=== PATIENT | female | born 1935 | race Caucasian/White ===

== ENCOUNTER 2016-09-11 15:11 | Emergency (ER) | payer OTHER ==
[~2016-09-11] VITALS: Ht 160 cm; Wt 77.0 kg
[~2016-09-11 15:11] MED LIST: ALEN1TAB48 PO; ALPR0.5T3 PO; DILT1TAB4 PO; ESOM1CAP16 PO; ESTR42.5V VAGINAL; FLUT1INH INH; LOSA100T PO; PAXI40TA PO; VENTAER INH
--- NOTE | 2016-09-11 16:25 | PD ---
HPI Chief Complaint: Fall Time Seen by Provider: 16:25 Travel History International Travel<30 days: No Contact w/Intl Traveler<30days: No Traveled to known affect area: No History of Present Illness HPI 80 year-old female history of "irregular heartbeat,, hypertension, CAD, osteoporosis, presents to emergency department for evaluation following a trip and fall. Patient states she was stepping up the steps at [employer] when she miss stepped and fell. Landing mostly on her buttocks but states she fell back striking her head on the ground. She did not lose consciousness. Patient was assisted up by [address]. She denies a nausea vomiting. No focal deficits or weakness. No significant pain but describes tenderness right where she struck her head on the concrete. She denies any chest tightness. No difficulty breathing. No other symptoms to report at this time. PFSH Past Medical History Arthritis: Yes Asthma: No Autoimmune Disease: No Anxiety: Yes Depression: Yes Heart Rhythm Problems: Yes (IRREGULAR HEART BEAT) Cancer: No Cardiac Catheterization: No Cardiovascular Problems: Yes High Cholesterol: Yes Chest Pain: No Congestive Heart Failure: No COPD: No Cerebrovascular Accident: No Diabetes: No Diminished Hearing: No Endocrine: No Gastrointestinal Disorders: Yes GERD: Yes Genitourinary: Yes Hiatal Hernia: Yes Heparin Induced Thrombocytopen: No Hypertension: Yes Immune Disorder: No Implanted Vascular Access Dvce: Yes (PAIN PUMP) Musculoskeletal: Yes Neurologic: Yes (CHRONIC BACK PAIN) Psychiatric: Yes Reproductive: No Respiratory: No Immunizations Current: Yes Migraines: No Seizures: No Sleep Apnea: No Thyroid Disease: No Ulcer: No Menopausal: Yes Tubal Ligation: Yes Past Surgical History Body Medical Devices: PAIN PUMP MORPHINE Coronary Artery Bypass Graft: No Gynecologic Surgery: Yes (HYSTERECTOMY /tubal ligation) Hysterectomy: Yes Neurologic Surgery: Yes (lumbar fusion 2000) Pacemaker: No Other Surgery: Yes (EYE LIDS) Social History Alcohol Use: No Tobacco Use: No (20 YEARS AGO) Substance Use: No Allergies-Medications (Allergen,Severity, Reaction): Coded Allergies: Adhesives (Verified Allergy, Severe, 09/11/16) Bactrim (Verified Allergy, Severe, RED RASH, 09/11/16) Sulfa (Verified Allergy, Severe, RED RASH, 09/11/16) Reported Meds & Prescriptions Reported Meds & Active Scripts Active Alprazolam 0.5 Mg Tab 0.25 Mg PO HS PRN Reported Diltiazem ER 24 HR 240 Mg Jamie 240 Mg PO DAILY Paxil (Paroxetine HCl) 40 Mg Tab 40 Mg PO DAILY Losartan (Losartan Potassium) 100 Mg Tab 100 Mg PO DAILY Esomeprazole DR 40 Mg Capdr 40 Mg PO DAILY Alendronate (Alendronate Sodium) 70 Mg Tab 70 Mg PO WEEKLY Ventolin Hfa 18 GM Inh (Albuterol Sulfate) 90 Mcg/Act Aer 2 Puff INH Q4H PRN Breo Ellipta Inh (Fluticasone/Vilanterol) 100-25 Mcg/Act Inh 1 Puff INH DAILY Use daily at the same time. Estrace Vaginal (Estradiol) 0.01% Cream 1 Appl VAGINAL DIRECTED Review of Systems Except as stated in HPI: all other systems reviewed are Neg Physical Exam Narrative GENERAL: Well-nourished female patient, in no acute distress SKIN: Warm and dry. HEAD: Palpable scalpel edema on the posterior scalp. This is tender to touch. There is no crepitus. No active bleeding. Normocephalic. EYES: Pupils equal and round. No scleral icterus. No injection or drainage. ENT: No nasal bleeding or discharge. Mucous membranes pink and moist. NECK: Trachea midline. No JVD. CARDIOVASCULAR: Regular rate and rhythm. No murmur appreciated. RESPIRATORY: No accessory muscle use. Clear to auscultation. Breath sounds equal bilaterally. GASTROINTESTINAL: Abdomen soft, non-tender, nondistended. Hepatic and splenic margins not palpable. MUSCULOSKELETAL: No obvious deformities. No clubbing. No cyanosis. No edema. NEUROLOGICAL: Awake and alert. No obvious cranial nerve deficits. Motor grossly within normal limits. Normal speech. PSYCHIATRIC: Appropriate mood and affect; insight and judgment normal. Data Data Last Documented VS Vital Signs Date Time Temp Pulse Resp B/P Pulse Ox O2 Delivery O2 Flow Rate FiO2 09/11/16 17:10 98.2 85 15 173/[address] Brain W/O Iv Contrast(Rout) (09/11/16 ) Ct Cerv Spine W/O Contrast (09/11/16 ) Apply Cervical Collar (09/11/16 16:24) MDM Medical Decision Making Medical Screen Exam Complete: Yes Emergency Medical Condition: Yes Medical Record Reviewed: Yes Differential Diagnosis Scalpel hematoma versus skull fracture versus intracranial hemorrhage Narrative Course 80 year-old female presents to emergency department for evaluation following a trip and fall. Patient did strike her head on the concrete and has a palpable area of edema on the posterior scalp. CT imaging of the brain and cervical spine are complete with no acute abnormality identified. Results are discussed with the patient. She is eager to be discharged to go home. I have gone over head injury precautions and instructed her to return immediately with any acute worsening of symptoms. She agrees that the splenic care. Diagnosis Primary Impression: Head injury due to trauma Qualified Code: S09.90XA - Head injury due to trauma, initial encounter Referrals: Primary Care Physician Patient Instructions: General Instructions, Head Injury (ED) Additional Instructions: Ice to the affected area Follow-up their primary care provider return Tylenol or ibuprofen as directed on the package as needed for pain Return immediately with any acute worsening of symptoms Med/Other Pt SpecificInfo: No Change to Meds Disposition: 01 DISCHARGE HOME Condition: Stable Maria Dolores Martins Sep 11, 2016 16:25
--- NOTE | 2016-09-11 16:52 | RADRPT ---
EXAM DATE/TIME: 09/11/2016 16:43 [facility] COMPARISON: CT BRAIN W/O CONTRAST, July 23, 2016, 12:21. INDICATIONS : Fall today with trauma to left side of head. RADIATION DOSE: 49.54 CTDIvol (mGy) MEDICAL HISTORY : Hypertension. SURGICAL HISTORY : Hysterectomy. ENCOUNTER: Initial ACUITY: 1 day PAIN SCALE: 7/10 LOCATION: Left head TECHNIQUE: Multiple contiguous axial images were obtained of the head. Using automated exposure control and adj ustment of the mA and/or kV according to patient size, radiation dose was kept as low as reasonably a chievable to obtain optimal diagnostic quality images. FINDINGS: CEREBRUM: The ventricles are normal for age. No evidence of midline shift, mass lesion, hemorrhage or acute in farction. No extra-axial fluid collections are seen. POSTERIOR FOSSA: The cerebellum and brainstem are intact. The 4th ventricle is midline. The cerebellopontine angle i s unremarkable. EXTRACRANIAL: The visualized portion of the orbits is intact. SKULL: The calvaria is intact. No evidence of skull fracture. CONCLUSION: Normal examination for a patient of this age. No significant change has occurred. Gabo Pfeiffer MD on September 11, 2016 at 16:50 Board Certified Radiologist. This report was verified electronically.
--- NOTE | 2016-09-11 17:03 | RADRPT ---
EXAM DATE/TIME: 09/11/2016 16:43 [facility] COMPARISON: CT CERVICAL SPINE W/O CONTRAST, July 23, 2016, 12:21. INDICATIONS : Fall today with trauma to left side of head RADIATION DOSE: 41.02 CTDIvol (mGy) MEDICAL HISTORY : Hypertension. SURGICAL HISTORY : Hysterectomy. ENCOUNTER: Initial ACUITY: 1 day PAIN SCALE: 7/10 LOCATION: Bilateral neck TECHNIQUE: Volumetric scanning of the cervical spine was performed. Multiplanar reconstructions in the sagittal, coronal and oblique axial planes were performed. Using automated exposure control and adjustment o f the mA and/or kV according to patient size, radiation dose was kept as low as reasonably achievable to obtain optimal diagnostic quality images. FINDINGS: Multilevel degenerative changes degenerative disc disease and facet arthritic changes are appreciated as well as uncovertebral hypertrophy. Alignment is normal with no evidence of fracture, compression, subluxation, or destructive change and the odontoid has normal relationship the arch of C1. CONCLUSION: Stable CT scan of the cervical spine with degenerative change. No acute bony injury. Gabo Pfeiffer MD on September 11, 2016 at 16:58 Board Certified Radiologist. This report was verified electronically.
[2016-09-11 17:10] VITALS: BP 173/80; PULSE 85; RESP 15; TEMP 98.2; O2SAT 97
== END 2016-09-11 20:29 | disposition home or self-care (01) ==
LOC: NETRI 15:11
DX: S09.90XA Unspecified injury of head, initial encounter (principal); W10.9XXA Fall (on) (from) unspecified stairs and steps, initial encounter; Y92.511 Restaurant or cafe as the place of occurrence of the external cause
CPT/HCPCS: 70450; 72125

== ENCOUNTER 2016-09-23 04:32 | Emergency (ER) | payer OTHER ==
[~2016-09-23] VITALS: Ht 160 cm; Wt 80.0 kg
[2016-09-23 04:36] VITALS: BP 183/86; PULSE 88; RESP 16; TEMP 97.6; O2SAT 98
--- NOTE | 2016-09-23 05:11 | PD ---
HPI Chief Complaint: GI Complaint Time Seen by Provider: 04:48 Travel History International Travel<30 days: No Contact w/Intl Traveler<30days: No Traveled to known affect area: No History of Present Illness HPI 81-year-old woman presents emergency department complaining that she had some shakes at home. She reports that she had a couple bouts of diarrhea 00 week or so ago. Since that time she's not felt well. She felt run down and went to an urgent care today who gave her prescription for azithromycin for her feeling rundown and aches and sore throat. She went home and then tonight had some shaking and she felt she had a fever. She thus came to the emergency department. PFSH Past Medical History Arthritis: Yes Asthma: No Autoimmune Disease: No Anxiety: Yes Depression: Yes Heart Rhythm Problems: Yes (IRREGULAR HEART BEAT) Cancer: No Cardiac Catheterization: No Cardiovascular Problems: Yes (HTN) High Cholesterol: Yes Chest Pain: No Congestive Heart Failure: No COPD: No Cerebrovascular Accident: No Diabetes: No Diminished Hearing: No Endocrine: No Gastrointestinal Disorders: Yes GERD: Yes Genitourinary: Yes Hiatal Hernia: Yes Heparin Induced Thrombocytopen: No Hypertension: Yes Immune Disorder: No Implanted Vascular Access Dvce: Yes (PAIN PUMP) Musculoskeletal: Yes Neurologic: Yes (CHRONIC BACK PAIN) Psychiatric: Yes Reproductive: No Respiratory: No Immunizations Current: Yes Migraines: No Seizures: No Sleep Apnea: No Thyroid Disease: No Ulcer: No Menopausal: Yes Tubal Ligation: Yes Past Surgical History Body Medical Devices: PAIN PUMP MORPHINE Coronary Artery Bypass Graft: No Gynecologic Surgery: Yes (HYSTERECTOMY /tubal ligation) Hysterectomy: Yes Neurologic Surgery: Yes (lumbar fusion 2000) Pacemaker: No Other Surgery: Yes (EYE LIDS) Social History Alcohol Use: No Tobacco Use: No (20 YEARS AGO) Substance Use: No Allergies-Medications (Allergen,Severity, Reaction): Coded Allergies: Adhesives (Verified Allergy, Severe, 09/23/16) Bactrim (Verified Allergy, Severe, RED RASH, 09/23/16) Sulfa (Verified Allergy, Severe, RED RASH, 09/23/16) Reported Meds & Prescriptions Reported Meds & Active Scripts Active Alprazolam 0.5 Mg Tab 0.25 Mg PO HS PRN Reported Diltiazem ER 24 HR 240 Mg Jamie 240 Mg PO DAILY Paxil (Paroxetine HCl) 40 Mg Tab 40 Mg PO DAILY Losartan (Losartan Potassium) 100 Mg Tab 100 Mg PO DAILY Esomeprazole DR 40 Mg Capdr 40 Mg PO DAILY Alendronate (Alendronate Sodium) 70 Mg Tab 70 Mg PO WEEKLY Ventolin Hfa 18 GM Inh (Albuterol Sulfate) 90 Mcg/Act Aer 2 Puff INH Q4H PRN Breo Ellipta Inh (Fluticasone/Vilanterol) 100-25 Mcg/Act Inh 1 Puff INH DAILY Use daily at the same time. Estrace Vaginal (Estradiol) 0.01% Cream 1 Appl VAGINAL DIRECTED Review of Systems Except as stated in HPI: all other systems reviewed are Neg Physical Exam Narrative GENERAL: Well-appearing 81-year-old woman, anxious no acute distress. SKIN: Warm and dry. HEAD: Atraumatic. Normocephalic. EYES: Pupils equal and round. No scleral icterus. No injection or drainage. ENT: No nasal bleeding or discharge. Mucous membranes pink and moist. NECK: Trachea midline. No JVD. CARDIOVASCULAR: Regular rate and rhythm. No murmur appreciated. RESPIRATORY: No accessory muscle use. Clear to auscultation. Breath sounds equal bilaterally. GASTROINTESTINAL: Abdomen soft, non-tender, nondistended. Hepatic and splenic margins not palpable. MUSCULOSKELETAL: No obvious deformities. No clubbing. No cyanosis. No edema. NEUROLOGICAL: Awake and alert. No obvious cranial nerve deficits. Motor grossly within normal limits. Normal speech. PSYCHIATRIC: Appropriate mood and affect; insight and judgment normal. Data Data Last Documented VS Vital Signs Date Time Temp Pulse Resp B/P Pulse Ox O2 Delivery O2 Flow Rate FiO2 09/23/16 04:36 97.6 88 16 183/86 98 Orders Ketorolac Inj (Toradol Inj) (09/23/16 05:15) [facility] Medical Decision Making Medical Screen Exam Complete: Yes Emergency Medical Condition: Yes Differential Diagnosis Anxiety, URI, infection, other Narrative Course Medical decision-making 81 year-old woman multiple complaints that seem to rundown with the fact she just doesn't feel well since she had diarrhea week or so ago. She looks fine. Don't see any evidence of significant dehydration or electrolyte abnormalities. She states she had some shakes and felt chilly earlier. She is on azithromycin for feeling poorly with some mild URI symptoms. She is asking for a shot so she noticed sleep. I think she is anxious. Recommend outpatient follow-up if symptoms persist. Diagnosis Primary Impression: Shasharmin Additional Instructions: Follow-up with your primary doctor. Return to the emergency department for any new or worsening symptoms. Disposition: 01 DISCHARGE HOME Condition: Stable Bowen Reid MD Sep 23, 2016 05:11
[2016-09-23] MEDS ORDERED: KETOROLAC TROMETHAMINE 60 MG/2 ML (IM) VIAL IM ONE (05:15)
[2016-09-24] MEDS ORDERED: PRAV20TA2 PO (23:53)
[2016-09-24] MEDS ORDERED: ZITH500T PO (23:53)
[2016-09-24] MEDS ORDERED: FURO40TA PO (23:53)
[2016-09-24] MEDS ORDERED: PARO40TA2 PO (23:53)
== END 2016-09-23 05:25 | disposition home or self-care (01) ==
LOC: NEPE 04:32
DX: R25.1 Tremor, unspecified (principal); I10 Essential (primary) hypertension; E78.00 Pure hypercholesterolemia, unspecified; K21.9 Gastro-esophageal reflux disease without esophagitis; G89.29 Other chronic pain; R19.7 Diarrhea, unspecified
CPT/HCPCS: 96372; 99283; J1885

== ENCOUNTER 2016-09-24 23:15 | Emergency (ER) | payer OTHER ==
[~2016-09-24] VITALS: Ht 154.9 cm; Wt 77.0 kg
[~2016-09-24 23:15] MED LIST changes: -ALPR0.5T3 PO; -ESTR42.5V VAGINAL; -PAXI40TA PO
[2016-09-24 23:16] VITALS: BP 138/88; PULSE 78; RESP 16; TEMP 99; O2SAT 98
[2016-09-24] MEDS ORDERED: PARO40TA2 PO (23:53)
[2016-09-24] MEDS ORDERED: FURO40TA PO (23:53)
[2016-09-24] MEDS ORDERED: PRAV20TA2 PO (23:53)
[2016-09-24] MEDS ORDERED: ZITH500T PO (23:53)
[2016-09-25 00:28] LABS: AUTOMATED NEUTROPHIL # 3.1 TH/MM3 (1.8-7.7); BASOPHIL # 0.1 TH/MM3 (0-0.2); BASOPHIL % 0.9 % (0.0-2.0); EOSINOPHIL % 0.7 % (0.0-4.0); HEMATOCRIT 38.7 % (35.0-46.0); LYMPH % 43.2 % (9.0-44.0); MEAN CELL VOLUME 85.1 FL (80.0-100.0); MEAN CORPUSCULAR HEMOGLOBIN 28.3 PG (27.0-34.0); MEAN CORPUSCULAR HGB CONC 33.3 % (32.0-36.0); MONO % 10.2 % (0.0-8.0); PLATELET COUNT 277 TH/MM3 (150-450); RED BLOOD COUNT 4.54 MIL/MM3 (4.00-5.30); RED CELL DISTRIBUTION WIDTH 15.2 % (11.6-17.2); WHITE BLOOD COUNT 6.9 TH/MM3 (4.0-11.0)
[2016-09-25 00:29] LABS: HEMO FLAGS AUTO DIFF
[2016-09-25 00:37] LABS: BACTERIA, URINE RARE /hpf; BLOOD, URINE NEG (NEG); GLUCOSE,URINE NEG (NEG); KETONE, URINE NEG (NEG); MUCUS URINE FEW /lpf (OCC); NITRITE,URINE NEG (NEG); PH, URINE 5.5 (5.0-8.5); SQUAMOUS EPITHELIAL CELL URINE 21 /hpf (0-5); TRANSITIONAL EPI CELLS, URINE 7 /hpf; URINE COLOR YELLOW (YELLW/STRAW)
[2016-09-25 00:39] LABS: COMMENT (UR) CULTURE INDICATED; CULTURE IF INDICATED CULTURE INDICATED
[2016-09-25 00:44] LABS: ANION GAP 10 MEQ/L (5-15); AST (GOT) 24 U/L (15-37); BICARBONATE 23.4 MEQ/L (21.0-32.0); BLOOD UREA NITROGEN 16 MG/DL (7-18); CHLORIDE 103 MEQ/L (98-107); GLOMERULAR FILTRATION RATE 66 ML/MIN (>89); POTASSIUM 3.7 MEQ/L (3.5-5.1); SODIUM (NA) 136 MEQ/L (136-145)
[2016-09-25 00:47] LABS: ALKALINE PHOSPHATASE 83 U/L (45-117); ALT (GPT) 24 U/L (10-53); TOTAL BILIRUBIN ADULT 0.3 MG/DL (0.2-1.0)
[2016-09-25 00:58] LABS: PLATELET ESTIMATE SMEAR NORMAL (NORMAL); PLATELET MORPHOLOGY NORMAL (NORMAL); SCAN/DIFF AUTO DIFF CONFIRMED
[2016-09-25] MEDS ORDERED: cefTRIAXone INJ 1,000 MG in SODIUM CHLORIDE 0.9% INJ 100 ML IV ONE (01:00)
--- NOTE | 2016-09-25 01:33 | PD ---
HPI Chief Complaint: Back/ Neck Pain or Injury Time Seen by Provider: 01:30 Travel History International Travel<30 days: No Contact w/Intl Traveler<30days: No Traveled to known affect area: No History of Present Illness HPI 81-year-old white female presents to emergency department with a 2-3 day history of feeling shaky. She states that she is now documented a fever. She states that she is feeling rundown, weak. She is noting increased urinary frequency. She denies any shortness of breath or wheezing. No ear pain or sore throat. No nausea vomiting. No bowel pain or stooling issues. Symptoms are moderate. She states that she has had a fever of 101F. PFSH Past Medical History Arthritis: Yes Anxiety: Yes Depression: Yes Heart Rhythm Problems: Yes (IRREGULAR HEART BEAT) Cardiovascular Problems: Yes (HTN) High Cholesterol: Yes Diminished Hearing: No Gastrointestinal Disorders: Yes GERD: Yes Genitourinary: Yes Hiatal Hernia: Yes Heparin Induced Thrombocytopen: No Hypertension: Yes Implanted Vascular Access Dvce: Yes (PAIN PUMP) Musculoskeletal: Yes Neurologic: Yes (CHRONIC BACK PAIN) Psychiatric: Yes Immunizations Current: Yes Menopausal: Yes Tubal Ligation: Yes Past Surgical History Body Medical Devices: PAIN PUMP MORPHINE Gynecologic Surgery: Yes (HYSTERECTOMY /tubal ligation) Hysterectomy: Yes Neurologic Surgery: Yes (lumbar fusion 2000) Other Surgery: Yes (EYE LIDS) Family History Family Myocardial Infarction: Yes (FATHER) Social History Alcohol Use: No Tobacco Use: No (20 YEARS AGO) Substance Use: No Allergies-Medications (Allergen,Severity, Reaction): Coded Allergies: Adhesives (Verified Allergy, Severe, 09/24/16) Bactrim (Verified Allergy, Severe, RED RASH, 09/24/16) Sulfa (Verified Allergy, Severe, RED RASH, 09/24/16) Reported Meds & Prescriptions Reported Meds & Active Scripts Active Reported Zithromax (Azithromycin) 500 Mg Tab 500 Mg PO DAILY Pravastatin 20 Mg Tab 20 Mg PO DAILY Paroxetine (Paroxetine HCl) 40 Mg Tab 40 Mg PO DAILY Furosemide 40 Mg Tab 40 Mg PO DAILY Diltiazem ER 24 HR 240 Mg Jamie 240 Mg PO DAILY Losartan (Losartan Potassium) 100 Mg Tab 100 Mg PO DAILY Esomeprazole DR 40 Mg Capdr 40 Mg PO DAILY Alendronate (Alendronate Sodium) 70 Mg Tab 70 Mg PO WEEKLY Ventolin Hfa 18 GM Inh (Albuterol Sulfate) 90 Mcg/Act Aer 2 Puff INH Q4H PRN Breo Ellipta Inh (Fluticasone/Vilanterol) 100-25 Mcg/Act Inh 1 Puff INH DAILY Use daily at the same time. Review of Systems Except as stated in HPI: all other systems reviewed are Neg Physical Exam Narrative GENERAL: Well-developed, well-nourished in no acute distress. Nontoxic appearing. HEAD: Normocephalic, atraumatic. EYES: Pupils equal round and reactive. Extraocular motions intact. No scleral icterus. No injection or drainage. ENT: TMs clear without erythema. The external auditory canals clear. Nose: clear . Posterior pharynx is pink and moist. No tonsillar edema or exudate. Uvula midline. Airway patent. NECK: Trachea midline.Supple, nontender, moves head freely. No central bony tenderness or spasm. CARDIOVASCULAR: Regular rate and rhythm without murmurs, gallops, or rubs. RESPIRATORY: Clear to auscultation. Breath sounds equal bilaterally. No wheezes , rales, or rhonchi. GASTROINTESTINAL: Abdomen soft, non-tender, nondistended. No hepato-splenomegaly , or palpable masses. No guarding. EXTREMITIES: No clubbing, cyanosis, or edema. No joint tenderness, effusion, or edema noted. BACK: Nontender without deformity or crepitance. No flank tenderness. Data Data Last Documented VS Vital Signs Date Time Temp Pulse Resp B/P Pulse Ox O2 Delivery O2 Flow Rate FiO2 09/25/16 00:06 20 09/24/16 23:16 99.0 78 138/88 98 Room Air Orders Complete Blood Count With Diff (09/24/16 23:48) Urinalysis - C+S If Indicated (09/24/16 23:48) Lactic Acid (09/24/16 23:48) Iv Access Insert/Monitor (09/24/16 23:48) Comprehensive Metabolic Panel (09/24/16 23:48) Urine Culture (09/25/16 00:00) Ceftriaxone Inj (Rocephin Inj) (09/25/16 01:00) Labs Laboratory Tests Test 09/25/16 00:00 White Blood Count 6.9 TH/MM3 Red Blood Count 4.54 MIL/MM3 Hemoglobin 12.9 GM/DL Hematocrit 38.7 % Mean Corpuscular Volume 85.1 FL Mean Corpuscular Hemoglobin 28.3 PG Mean Corpuscular Hemoglobin 33.3 % Concent Red Cell Distribution Width 15.2 % Platelet Count 277 TH/MM3 Mean Platelet Volume 7.7 FL Neutrophils (%) (Auto) 45.0 % Lymphocytes (%) (Auto) 43.2 % Monocytes (%) (Auto) 10.2 % Eosinophils (%) (Auto) 0.7 % Basophils (%) (Auto) 0.9 % Neutrophils # (Auto) 3.1 TH/MM3 Lymphocytes # (Auto) 3.0 TH/MM3 Monocytes # (Auto) 0.7 TH/MM3 Eosinophils # (Auto) 0.0 TH/MM3 Basophils # (Auto) 0.1 TH/MM3 CBC Comment AUTO DIFF Differential Comment AUTO DIFF CONFIRMED Platelet Estimate NORMAL Platelet Morphology Comment NORMAL Urine Color YELLOW Urine Turbidity HAZY Urine pH 5.5 Urine Specific [place] 1.016 Urine Protein NEG mg/dL Urine Glucose (UA) NEG mg/dL Urine Ketones NEG mg/dL Urine Occult Blood NEG Urine Nitrite NEG Urine Bilirubin NEG Urine Urobilinogen LESS THAN 2.0 MG/DL Urine Leukocyte Esterase LARGE Urine RBC 6 /hpf Urine WBC 20 /hpf Urine Squamous Epithelial 21 /hpf Cells Urine Transitional Epithelial 7 /hpf Cells Urine Bacteria RARE /hpf Urine Mucus FEW /lpf Microscopic Urinalysis Comment CULTURE INDICATED Sodium Level 136 MEQ/L Potassium Level 3.7 MEQ/L Chloride Level 103 MEQ/L Carbon Dioxide Level 23.4 MEQ/L Anion Gap 10 MEQ/L Blood Urea Nitrogen 16 MG/DL Creatinine 0.83 MG/DL Estimat Glomerular Filtration 66 ML/MIN Rate Random Glucose 94 MG/DL Lactic Acid Level 1.0 mmol/L Calcium Level 9.0 MG/DL Total Bilirubin 0.3 MG/DL Aspartate Amino Transf 24 U/L (AST/SGOT) Alanine Aminotransferase 24 U/L (ALT/SGPT) Alkaline Phosphatase 83 U/L Total Protein 7.7 GM/DL Albumin 4.0 GM/DL MDM Medical Decision Making Medical Screen Exam Complete: Yes Emergency Medical Condition: Yes Medical Record Reviewed: Yes Interpretation(s) Laboratory Tests Test 09/25/16 00:00 White Blood Count 6.9 TH/MM3 Red Blood Count 4.54 MIL/MM3 Hemoglobin 12.9 GM/DL Hematocrit 38.7 % Mean Corpuscular Volume 85.1 FL Mean Corpuscular Hemoglobin 28.3 PG Mean Corpuscular Hemoglobin 33.3 % Concent Red Cell Distribution Width 15.2 % Platelet Count 277 TH/MM3 Mean Platelet Volume 7.7 FL Neutrophils (%) (Auto) 45.0 % Lymphocytes (%) (Auto) 43.2 % Monocytes (%) (Auto) 10.2 % Eosinophils (%) (Auto) 0.7 % Basophils (%) (Auto) 0.9 % Neutrophils # (Auto) 3.1 TH/MM3 Lymphocytes # (Auto) 3.0 TH/MM3 Monocytes # (Auto) 0.7 TH/MM3 Eosinophils # (Auto) 0.0 TH/MM3 Basophils # (Auto) 0.1 TH/MM3 CBC Comment AUTO DIFF Differential Comment AUTO DIFF CONFIRMED Platelet Estimate NORMAL Platelet Morphology Comment NORMAL Urine Color YELLOW Urine Turbidity HAZY Urine pH 5.5 Urine Specific [place] 1.016 Urine Protein NEG mg/dL Urine Glucose (UA) NEG mg/dL Urine Ketones NEG mg/dL Urine Occult Blood NEG Urine Nitrite NEG Urine Bilirubin NEG Urine Urobilinogen LESS THAN 2.0 MG/DL Urine Leukocyte Esterase LARGE Urine RBC 6 /hpf Urine WBC 20 /hpf Urine Squamous Epithelial 21 /hpf Cells Urine Transitional Epithelial 7 /hpf Cells Urine Bacteria RARE /hpf Urine Mucus FEW /lpf Microscopic Urinalysis Comment CULTURE INDICATED Sodium Level 136 MEQ/L Potassium Level 3.7 MEQ/L Chloride Level 103 MEQ/L Carbon Dioxide Level 23.4 MEQ/L Anion Gap 10 MEQ/L Blood Urea Nitrogen 16 MG/DL Creatinine 0.83 MG/DL Estimat Glomerular Filtration 66 ML/MIN Rate Random Glucose 94 MG/DL Lactic Acid Level 1.0 mmol/L Calcium Level 9.0 MG/DL Total Bilirubin 0.3 MG/DL Aspartate Amino Transf 24 U/L (AST/SGOT) Alanine Aminotransferase 24 U/L (ALT/SGPT) Alkaline Phosphatase 83 U/L Total Protein 7.7 GM/DL Albumin 4.0 GM/DL Differential Diagnosis Differential diagnosis: Sepsis, UTI, electrolyte abnormality Narrative Course IV access is obtained. Lactic acid, CBC, chemistry and UA ordered. Patient's urine is positive for UTI. She is given 1 g of Rocephin IV. Lactic acid is negative. The patient will be discharged home on Cipro. Diagnosis Primary Impression: UTI (urinary tract infection) Additional Impression: Fever and chills Patient Instructions: General Instructions Additional Instructions: Rest. Increase fluids. Cipro. Follow-up with a primary care doctor in 2-3 days. Return to the ER for any problems. Med/Other Pt SpecificInfo: Prescription(s) given Disposition: 01 DISCHARGE HOME Condition: Stable Arslan Schafer Sep 25, 2016 01:33
[2016-09-25] MEDS ORDERED: CIPR-9 PO (01:35)
== END 2016-09-25 02:13 | disposition home or self-care (01) ==
LOC: NEPB 23:15
DX: N39.0 Urinary tract infection, site not specified (principal); F41.8 Other specified anxiety disorders; M19.90 Unspecified osteoarthritis, unspecified site; I10 Essential (primary) hypertension; E78.00 Pure hypercholesterolemia, unspecified
CPT/HCPCS: 80053; 81001; 83605; 85025; 87086; 96374; 99284; J0696

== ENCOUNTER 2016-10-02 13:59 | Observation (INO) | payer OTHER ==
[~2016-10-02] VITALS: Ht 160 cm; Wt 74.0 kg
[~2016-10-02 13:59] MED LIST changes: +CIPR-9 PO; +FURO40TA PO; +PARO40TA2 PO; +PRAV20TA2 PO; +ZITH500T PO
[2016-10-02 14:00] VITALS: BP 188/79; PULSE 90; RESP 20; TEMP 97.6; O2SAT 95
[2016-10-02 16:05] VITALS: RESP 17; O2SAT 98
[2016-10-02] MEDS ORDERED: SODIUM CHLORIDE 0.9% FLUSH 5 ML FLUSH IVF PRN (16:15)
[2016-10-02] MEDS ORDERED: SODIUM CHLORID 0.9% 500 ML INJ 500 ML IV ONE (16:15)
[2016-10-02] MEDS ORDERED: DIPHTH/TETANUS/ACEL PERTUSSIS (BOOSTER) 0.5 ML VIAL/PFS IM ONE (16:15)
[2016-10-02] MEDS ORDERED: OMEP40CA2 PO (16:21)
[2016-10-02 17:08] LABS: AUTOMATED NEUTROPHIL # 5.5 TH/MM3 (1.8-7.7); BASOPHIL % 0.5 % (0.0-2.0); EOSINOPHIL # 0.1 TH/MM3 (0-0.4); EOSINOPHIL % 1.1 % (0.0-4.0); HEMATOCRIT 37.4 % (35.0-46.0); HEMO FLAGS DIFF FINAL; LYMPH % 22.5 % (9.0-44.0); MEAN CELL VOLUME 86.9 FL (80.0-100.0); MEAN CORPUSCULAR HEMOGLOBIN 28.6 PG (27.0-34.0); MEAN CORPUSCULAR HGB CONC 32.9 % (32.0-36.0); MONO % 12.5 % (0.0-8.0); NEUT % 63.4 % (16.0-70.0); PLATELET COUNT 227 TH/MM3 (150-450); RED BLOOD COUNT 4.31 MIL/MM3 (4.00-5.30); RED CELL DISTRIBUTION WIDTH 15.9 % (11.6-17.2); WHITE BLOOD COUNT 8.7 TH/MM3 (4.0-11.0)
[2016-10-02 17:26] LABS: PROTHROMBIN TIME - PATIENT 11.1 SEC (9.8-11.6)
[2016-10-02 17:34] LABS: ACETAMINOPHEN LESS THAN 2.0 MCG/ML (10.0-30.0); ALKALINE PHOSPHATASE 75 U/L (45-117); TOTAL BILIRUBIN ADULT 0.7 MG/DL (0.2-1.0)
[2016-10-02 17:46] LABS: ALT (GPT) 16 U/L (10-53); ANION GAP 10 MEQ/L (5-15); AST (GOT) 15 U/L (15-37); BICARBONATE 24.8 MEQ/L (21.0-32.0); BLOOD UREA NITROGEN 14 MG/DL (7-18); CHLORIDE 105 MEQ/L (98-107); GLOMERULAR FILTRATION RATE 70 ML/MIN (>89); INDIRECT BILIRUBIN 0.6 MG/DL (0.0-0.8); POTASSIUM 4.1 MEQ/L (3.5-5.1); SODIUM (NA) 140 MEQ/L (136-145)
--- NOTE | 2016-10-02 18:22 | PD ---
HPI Chief Complaint: Altered Mental Status Time Seen by Provider: 15:44 Travel History International Travel<30 days: No Contact w/Intl Traveler<30days: No Traveled to known affect area: No History of Present Illness HPI Patient is a 81-year-old female brought in by her son after she fell last night. Her son reports that she has been falling very frequently and he is worried she is unable to care for herself anymore. She says that she seems to lose her balance and fall down. She says she has some pain to her lower back as well as her left foot and ankle. She seems confused well speaking to me, and is unable to really provide any other history or complaints. She says she has been feeling depressed, and her son says she has had issues with depression in the past. PFSH Past Medical History Arthritis: Yes Anxiety: Yes Depression: Yes Heart Rhythm Problems: Yes (IRREGULAR HEART BEAT) Cardiovascular Problems: Yes (HTN) High Cholesterol: Yes Diminished Hearing: No Gastrointestinal Disorders: Yes GERD: Yes Genitourinary: Yes Hiatal Hernia: Yes Heparin Induced Thrombocytopen: No Hypertension: Yes Implanted Vascular Access Dvce: Yes (PAIN PUMP) Musculoskeletal: Yes Neurologic: Yes (CHRONIC BACK PAIN) Psychiatric: Yes Immunizations Current: Yes Tetanus Vaccination: < 5 Years Influenza Vaccination: Yes Menopausal: Yes Tubal Ligation: Yes Past Surgical History Body Medical Devices: PAIN PUMP MORPHINE Gynecologic Surgery: Yes (HYSTERECTOMY /tubal ligation) Hysterectomy: Yes Neurologic Surgery: Yes (lumbar fusion 2000) Other Surgery: Yes (EYE LIDS) Family History Family Myocardial Infarction: Yes (FATHER) Social History Alcohol Use: No Tobacco Use: No (20 YEARS AGO) Substance Use: No Allergies-Medications (Allergen,Severity, Reaction): Coded Allergies: Adhesives (Verified Allergy, Severe, rash, 10/02/16) Bactrim (Verified Allergy, Severe, RED RASH, 10/02/16) Sulfa (Verified Allergy, Severe, RED RASH, 10/02/16) Reported Meds & Prescriptions Reported Meds & Active Scripts Active Reported Omeprazole 40 Mg Cap 40 Mg PO DAILY Pravastatin 20 Mg Tab 20 Mg PO DAILY Paroxetine (Paroxetine HCl) 40 Mg Tab 40 Mg PO DAILY Furosemide 40 Mg Tab 40 Mg PO DAILY Diltiazem ER 24 HR 240 Mg Jamie 240 Mg PO DAILY Losartan (Losartan Potassium) 100 Mg Tab 100 Mg PO DAILY Alendronate (Alendronate Sodium) 70 Mg Tab 70 Mg PO WEEKLY Breo Ellipta Inh (Fluticasone/Vilanterol) 100-25 Mcg/Act Inh 1 Puff INH DAILY Use daily at the same time. Review of Systems ROS Limitations: Clinical Condition General / Constitutional: No: Fever, Chills Cardiovascular: No: Chest Pain or Discomfort Respiratory: No: Shortness of Breath Gastrointestinal: No: Nausea, Vomiting, Abdominal Pain Musculoskeletal: Positive: Pain Skin: No Rash, No Change in Pigmentation Physical Exam Narrative GENERAL: Awake and alert, in no acute distress. SKIN: Warm and dry. HEAD: Atraumatic. Normocephalic. EYES: Pupils equal and round. No scleral icterus. ENT: Mucous membranes pink and moist. NECK: Trachea midline. No JVD. CARDIOVASCULAR: Regular rate and rhythm. No murmur appreciated. RESPIRATORY: No accessory muscle use. Clear to auscultation. Breath sounds equal bilaterally. GASTROINTESTINAL: Abdomen soft, non-tender, nondistended. MUSCULOSKELETAL: No obvious deformities. No clubbing. No cyanosis. Left foot edema, pain with movement of the ankle. Pedal pulses intact. NEUROLOGICAL: Awake and alert. No obvious cranial nerve deficits. Motor grossly within normal limits. Normal speech. PSYCHIATRIC: Appropriate mood and affect; insight and judgment normal. Data Data Last Documented VS Vital Signs Date Time Temp Pulse Resp B/P Pulse Ox O2 Delivery O2 Flow Rate FiO2 10/02/16 16:05 17 98 Room Air 10/02/16 14:00 97.6 90 188/79 Orders Electrocardiogram (10/02/16 16:01) Ammonia (10/02/16 16:01) Basic Metabolic Panel (Bmp) (10/02/16 16:01) Complete Blood Count With Diff (10/02/16 16:01) Prothrombin Time / Inr (Pt) (10/02/16 16:01) Act Partial Throm Time (Ptt) (10/02/16 16:01) Troponin I (10/02/16 16:01) Thyroid Stimulating Hormone (10/02/16 16:01) Urinalysis - C+S If Indicated (10/02/16 16:01) Ua Includes Microscopic (10/02/16 16:01) Chest, Pa & Lat (10/02/16 16:01) Ct Brain W/O Iv Contrast(Rout) (10/02/16 16:01) Ecg Monitoring (10/02/16 16:01) Iv Access Insert/Monitor (10/02/16 16:01) Oximetry (10/02/16 16:01) Sodium Chloride 0.9% Flush (Ns Flush) (10/02/16 16:15) Drug Screen, Random Urine (10/02/16 16:01) Salicylates (Aspirin) (10/02/16 16:01) Tylenol (Acetaminophen) (10/02/16 16:01) Hepatic Functional Panel (10/02/16 16:01) Sodium Chlorid 0.9% 500 Ml Inj (Ns 500 M (10/02/16 16:15) Foot, Complete ([id number]) (10/02/16 ) Ankle, Complete ([id number]) (10/02/16 ) Wound Care (10/02/16 16:01) Dpog-Dro-Wmhame (Booster) Inj (Boostrix (10/02/16 16:15) Labs Laboratory Tests Test 10/02/16 16:30 White Blood Count 8.7 TH/MM3 Red Blood Count 4.31 MIL/MM3 Hemoglobin 12.3 GM/DL Hematocrit 37.4 % Mean Corpuscular Volume 86.9 FL Mean Corpuscular Hemoglobin 28.6 PG Mean Corpuscular Hemoglobin 32.9 % Concent Red Cell Distribution Width 15.9 % Platelet Count 227 TH/MM3 Mean Platelet Volume 7.9 FL Neutrophils (%) (Auto) 63.4 % Lymphocytes (%) (Auto) 22.5 % Monocytes (%) (Auto) 12.5 % Eosinophils (%) (Auto) 1.1 % Basophils (%) (Auto) 0.5 % Neutrophils # (Auto) 5.5 TH/MM3 Lymphocytes # (Auto) 2.0 TH/MM3 Monocytes # (Auto) 1.1 TH/MM3 Eosinophils # (Auto) 0.1 TH/MM3 Basophils # (Auto) 0.0 TH/MM3 CBC Comment DIFF FINAL Differential Comment Prothrombin Time 11.1 SEC Prothromb Time International 1.0 RATIO Ratio Activated Partial 28.0 SEC Thromboplast Time Sodium Level 140 MEQ/L Potassium Level 4.1 MEQ/L Chloride Level 105 MEQ/L Carbon Dioxide Level 24.8 MEQ/L Anion Gap 10 MEQ/L Blood Urea Nitrogen 14 MG/DL Creatinine 0.79 MG/DL Estimat Glomerular Filtration 70 ML/MIN Rate Random Glucose 93 MG/DL Calcium Level 8.9 MG/DL Total Bilirubin 0.7 MG/DL Direct Bilirubin 0.1 MG/DL Indirect Bilirubin 0.6 MG/DL Aspartate Amino Transf 15 U/L (AST/SGOT) Alanine Aminotransferase 16 U/L (ALT/SGPT) Alkaline Phosphatase 75 U/L Ammonia 24 MCMOL/L Troponin I LESS THAN 0.02 NG/ML Total Protein 7.1 GM/DL Albumin 3.9 GM/DL Thyroid Stimulating Hormone 0.698 uIU/ML 3rd Gen Salicylates Level LESS THAN 1.7 MG/DL Acetaminophen Level LESS THAN 2.0 MCG/ML MDM Medical Decision Making Medical Screen Exam Complete: Yes Emergency Medical Condition: Yes Medical Record Reviewed: Yes Differential Diagnosis UTI versus sepsis versus electrolyte abnormality versus CVA Narrative Course Patient is a 81-year-old female brought in by her son because she has had frequent falls and seems to be unable to care for herself. Of note patient has a morphine pump and often takes benzodiazepines. Exam shows some swelling of the left foot with some pain with movement. IV established, labs sent. CT of the head ordered. X-rays of the foot and ankle as well as the lumbar spine ordered. Patient signed out to Dr. Fonseca to follow-up tests and disposition appropriately. Condition: Stable Chery Morrison MD Oct 02, 2016 18:22
[2016-10-02 18:30] VITALS: BP 177/84; PULSE 77; RESP 17; TEMP 97.8; O2SAT 99
--- NOTE | 2016-10-02 18:49 | RADRPT ---
EXAM DATE/TIME: 10/02/2016 18:19 [facility] COMPARISON: CT BRAIN W/O CONTRAST, September 11, 2016, 16:43. INDICATIONS : Fall yesterday. Altered menta status. RADIATION DOSE: 38.43 CTDIvol (mGy) MEDICAL HISTORY : Hypertension. SURGICAL HISTORY : Hysterectomy. ENCOUNTER: Initial ACUITY: 1 day PAIN SCALE: 4/10 LOCATION: Bilateral head TECHNIQUE: Multiple contiguous axial images were obtained of the head. Using automated exposure control and adj ustment of the mA and/or kV according to patient size, radiation dose was kept as low as reasonably a chievable to obtain optimal diagnostic quality images. FINDINGS: CEREBRUM: The ventricles are normal for age. No evidence of midline shift, mass lesion, hemorrhage or acute in farction. No extra-axial fluid collections are seen. POSTERIOR FOSSA: The cerebellum and brainstem are intact. The 4th ventricle is midline. The cerebellopontine angle i s unremarkable. EXTRACRANIAL: The visualized portion of the orbits is intact. SKULL: The calvaria is intact. No evidence of skull fracture. CONCLUSION: Negative noncontrast head CT. Frank Savage MD on October 02, 2016 at 18:47 Board Certified Radiologist. This report was verified electronically.
--- NOTE | 2016-10-02 18:57 | RADRPT ---
EXAM DATE/TIME: 10/02/2016 18:23 [facility] COMPARISON: CHEST SINGLE AP, July 23, 2016, 11:52. INDICATIONS : Syncope, short of breath. MEDICAL HISTORY : None. SURGICAL HISTORY : None. ENCOUNTER: Initial ACUITY: 3 days PAIN SCORE: 0/10 LOCATION: Bilateral chest FINDINGS: PA and lateral views of the chest demonstrate the lungs to be symmetrically aerated without evidence of mass, infiltrate or effusion. The cardiomediastinal contours are unremarkable. Osseous structure s are intact. Calcified right peritracheal lymph nodes are again noted. Lungs are hyperexpanded. CONCLUSION: No evidence of acute cardiopulmonary disease. Hyperexpanded lungs and pleural granulomatous disease a gain noted. Frank Savage MD on October 02, 2016 at 18:55 Board Certified Radiologist. This report was verified electronically.
--- NOTE | 2016-10-02 19:00 | RADRPT ---
EXAM DATE/TIME: 10/02/2016 18:24 [facility] COMPARISON: No previous studies available for comparison. INDICATIONS : Left ankle pain after fall. MEDICAL HISTORY : None. SURGICAL HISTORY : None. ENCOUNTER: Initial ACUITY: 3 days PAIN SCORE: 7/10 LOCATION: Left ankle. FINDINGS: Bones are osteopenic. There is cortical irregularity of the dorsal, proximal corner of the navicular which may be a minimally displaced avulsion fracture of the dorsal talonavicular ligament. There is s ome soft tissue swelling in this region. Otherwise, I don't see an acute fracture. There are old avulsion fracture fragments of the tips of t he medial and lateral malleoli. 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 A moderate-sized heel spur is present. CONCLUSION: Minimally displaced avulsion fracture dorsally of the navicular, probably acute. Otherwise old/chroni c findings and osteopenia. Please see above. Frank Savage MD on October 02, 2016 at 18:56 Board Certified Radiologist. This report was verified electronically.
--- NOTE | 2016-10-02 19:02 | RADRPT ---
EXAM DATE/TIME: 10/02/2016 18:26 [facility] COMPARISON: No previous studies available for comparison. INDICATIONS : Left foot pain after fall. MEDICAL HISTORY : None. SURGICAL HISTORY : None. ENCOUNTER: Initial ACUITY: 3 days PAIN SCORE: 8/10 LOCATION: Left foot. FINDINGS: There is dorsal soft tissue swelling. A minimally displaced avulsion fracture fragment is seen off of the dorsal aspect of the navicular, in the region of the dorsal talonavicular ligament. No other acu te fracture demonstrated. No subluxations. CONCLUSION: Minimal displaced avulsion fracture dorsally of the navicular as above. Frank Savage MD on October 02, 2016 at 18:59 Board Certified Radiologist. This report was verified electronically.
--- NOTE | 2016-10-02 19:06 | RADRPT ---
EXAM DATE/TIME: 10/02/2016 18:35 [facility] COMPARISON: CT ABDOMEN & PELVIS W/O CONTRAST, February 25, 2015, 6:40. INDICATIONS : Lower back pain after fall. MEDICAL HISTORY : None. SURGICAL HISTORY : Pain stimulator. ENCOUNTER: Initial ACUITY: 3 days PAIN SCORE: 10/10 LOCATION: Bilateral lower back. FINDINGS: Mild dextroconvex curvature seen the lumbar spine, similar to the prior CT. Patient has had attempted fusion procedure with interbody instrumentation at L4/L5. There is grade 1 anterolisthesis at this l evel which appears similar to the prior CT as well. I'm not sure there is solid bony bridging at this level. There appears to be some chronic remodeling and bone resorption of the superior endplate of L 5. Bilateral foraminal stenosis would be likely at both L4/L5 and L5/S1. No cortical break or trabecular disruption. No new/acute-appearing malalignment. There is mild disc space narrowing at L2/L3 and mild to moderate disc space narrowing at L3/L4, both levels with mild vacuum phenomena. There is atherosclerosis of the abdominal aorta. No evidence of aneurysm. CONCLUSION: Chronic and surgical changes. There is grade one anterolisthesis at L4/L5 which appears similar to th e prior CT. No acute fracture or acute-appearing malalignment demonstrated. Please see above. Frank Savage MD on October 02, 2016 at 19:01 Board Certified Radiologist. This report was verified electronically.
[2016-10-02 19:12] LABS: BLOOD, URINE NEG (NEG); GLUCOSE,URINE NEG (NEG); KETONE, URINE NEG (NEG); MUCUS URINE FEW /lpf (OCC); NITRITE,URINE NEG (NEG); PH, URINE 6.5 (5.0-8.5); URINE COLOR LIGHT-YELLOW (YELLW/STRAW)
[2016-10-02 19:13] LABS: COMMENT (UR) CATH-CULT NOT IND; CULTURE IF INDICATED CATH CULTURE NOT IND
[2016-10-02 19:19] LABS: AMPHETAMINE, URINE NEG (NEG); BARBITURATES, URINE NEG (NEG); COCAINE, URINE NEG (NEG)
[2016-10-02] MEDS ORDERED: NALOXONE HCL 0.4 MG/ML AMP IV PRN (21:00)
[2016-10-02] MEDS: SODIUM CHLORIDE 0.9% FLUSH 5 ML FLUSH FLUSH SCH (21:00)
[2016-10-02] MEDS ORDERED: SODIUM CHLORIDE 0.9% FLUSH 5 ML FLUSH FLUSH PRN (21:00)
[2016-10-02] MEDS ORDERED: ONDANSETRON HCL 4 MG/2 ML VIAL IVP PRN (21:00)
--- NOTE | 2016-10-02 21:20 | PD ---
Data Data Last Documented VS Vital Signs Date Time Temp Pulse Resp B/P Pulse Ox O2 Delivery O2 Flow Rate FiO2 10/02/16 18:30 97.8 77 17 177/84 99 Room Air Orders Electrocardiogram (10/02/16 16:01) Ammonia (10/02/16 16:01) Basic Metabolic Panel (Bmp) (10/02/16 16:01) Complete Blood Count With Diff (10/02/16 16:01) Prothrombin Time / Inr (Pt) (10/02/16 16:01) Act Partial Throm Time (Ptt) (10/02/16 16:01) Troponin I (10/02/16 16:01) Thyroid Stimulating Hormone (10/02/16 16:01) Urinalysis - C+S If Indicated (10/02/16 16:01) Ua Includes Microscopic (10/02/16 16:01) Chest, Pa & Lat (10/02/16 16:01) Ct Brain W/O Iv Contrast(Rout) (10/02/16 16:01) Ecg Monitoring (10/02/16 16:01) Iv Access Insert/Monitor (10/02/16 16:01) Oximetry (10/02/16 16:01) Sodium Chloride 0.9% Flush (Ns Flush) (10/02/16 16:15) Drug Screen, Random Urine (10/02/16 16:01) Salicylates (Aspirin) (10/02/16 16:01) Tylenol (Acetaminophen) (10/02/16 16:01) Hepatic Functional Panel (10/02/16 16:01) Sodium Chlorid 0.9% 500 Ml Inj (Ns 500 M (10/02/16 16:15) Foot, Complete ([id number]) (10/02/16 ) Ankle, Complete ([id number]) (10/02/16 ) Wound Care (10/02/16 16:01) Oblb-Yuh-Sjcvev (Booster) Inj (Boostrix (10/02/16 16:15) Spine, Lumbar Comp W/Obliq (10/02/16 ) Cath For Specimen (10/02/16 18:22) Consult Orthopedic (10/02/16 ) Admit Order (Ed Use Only) (10/02/16 ) Place In Observation (10/02/16 ) Vital Signs (Adult) Q4H (10/02/16 20:54) Activity Bed Rest (10/02/16 20:54) Assembly Machine Feeder / Telemetry .CONTINUOUS (10/02/16 20:54) Diet Npo (10/03/16 Breakfast) Sodium Chloride 0.9% Flush (Ns Flush) (10/02/16 21:00) Sodium Chloride 0.9% Flush (Ns Flush) (10/02/16 21:00) Ondansetron Inj (Zofran Inj) (10/02/16 21:00) Basic Metabolic Panel (Bmp) (10/03/16 06:00) Complete Blood Count With Diff (10/03/16 06:00) Pt Request For Service (10/02/16 20:54) Case Management Consult (10/02/16 20:54) Scd Bilateral/Knee High WHITNEY.BID (10/02/16 20:54) Naloxone Inj (Narcan Inj) (10/02/16 21:00) Morphine Inj (Morphine Inj) (10/02/16 21:00) Labs Laboratory Tests Test 10/02/16 16:30 White Blood Count 8.7 TH/MM3 Red Blood Count 4.31 MIL/MM3 Hemoglobin 12.3 GM/DL Hematocrit 37.4 % Mean Corpuscular Volume 86.9 FL Mean Corpuscular Hemoglobin 28.6 PG Mean Corpuscular Hemoglobin 32.9 % Concent Red Cell Distribution Width 15.9 % Platelet Count 227 TH/MM3 Mean Platelet Volume 7.9 FL Neutrophils (%) (Auto) 63.4 % Lymphocytes (%) (Auto) 22.5 % Monocytes (%) (Auto) 12.5 % Eosinophils (%) (Auto) 1.1 % Basophils (%) (Auto) 0.5 % Neutrophils # (Auto) 5.5 TH/MM3 Lymphocytes # (Auto) 2.0 TH/MM3 Monocytes # (Auto) 1.1 TH/MM3 Eosinophils # (Auto) 0.1 TH/MM3 Basophils # (Auto) 0.0 TH/MM3 CBC Comment DIFF FINAL Differential Comment Prothrombin Time 11.1 SEC Prothromb Time International 1.0 RATIO Ratio Activated Partial 28.0 SEC Thromboplast Time Urine Color LIGHT-YELLOW Urine Turbidity CLEAR Urine pH 6.5 Urine Specific [place] 1.007 Urine Protein NEG mg/dL Urine Glucose (UA) NEG mg/dL Urine Ketones NEG mg/dL Urine Occult Blood NEG Urine Nitrite NEG Urine Bilirubin NEG Urine Urobilinogen LESS THAN 2.0 MG/DL Urine Leukocyte Esterase NEG Urine RBC 2 /hpf Urine WBC LESS THAN 1 /hpf Urine Mucus FEW /lpf Microscopic Urinalysis Comment CATH-CULT NOT IND Sodium Level 140 MEQ/L Potassium Level 4.1 MEQ/L Chloride Level 105 MEQ/L Carbon Dioxide Level 24.8 MEQ/L Anion Gap 10 MEQ/L Blood Urea Nitrogen 14 MG/DL Creatinine 0.79 MG/DL Estimat Glomerular Filtration 70 ML/MIN Rate Random Glucose 93 MG/DL Calcium Level 8.9 MG/DL Total Bilirubin 0.7 MG/DL Direct Bilirubin 0.1 MG/DL Indirect Bilirubin 0.6 MG/DL Aspartate Amino Transf 15 U/L (AST/SGOT) Alanine Aminotransferase 16 U/L (ALT/SGPT) Alkaline Phosphatase 75 U/L Ammonia 24 MCMOL/L Troponin I LESS THAN 0.02 NG/ML Total Protein 7.1 GM/DL Albumin 3.9 GM/DL Thyroid Stimulating Hormone 0.698 uIU/ML 3rd Gen Salicylates Level LESS THAN 1.7 MG/DL Urine Opiates Screen POS Acetaminophen Level LESS THAN 2.0 MCG/ML Urine Barbiturates Screen NEG Urine Amphetamines Screen NEG Urine Benzodiazepines Screen NEG Urine Cocaine Screen NEG Urine Cannabinoids Screen NEG MDM Supervised Visit with SERA: Yes Narrative Course Patient care assumed from Dr. Chery Morrison at 1900, this is a 81-year-old female who presented to the emergency department with a history of frequent falls and left ankle pain. Patient's CT head and C-spine are negative, labs are reassuring, UA shows no evidence of infection. On my examination the patient is alert and awake and oriented, has complaints of left foot and ankle pain. Review of these x-rays does show that she has a mildly displaced avulsion fracture of the navicular. She is tender directly at this point. Pulses motor and sensory intact and compartments are soft. Patient's son per Dr. Morrison was concerned about frequent falls in the patient's ability to take care of herself at home. Given her history of a fracture as well as frequent falls she does meet admission criteria. We'll need consideration for long-term placement. She is stable for the floor at this time. Diagnosis Primary Impression: Foot fracture, left Qualified Code: S92.902A - Foot fracture, left, closed, initial encounter Additional Impression: Frequent falls Admitting Information Admitting Physician Requests: Observation Condition: Stable Geoff Fonseca MD Oct 02, 2016 21:20
[2016-10-02] MEDS: MORPHINE SULFATE 4 MG/ML INJ IV PUSH PRN (23:10)
[2016-10-02 23:11] VITALS: BP 171/79; PULSE 84; RESP 20; O2SAT 100
[2016-10-03] VITALS (11 sets, daily range): BP systolic 110–185; BP diastolic 58–89; PULSE 68–90; RESP 16–18; TEMP 97.8–98.8; O2SAT 95–98
[2016-10-03] MEDS ORDERED: ENALAPRILAT 2.5 MG/2 ML VIAL IV PUSH PRN (03:45)
--- NOTE | 2016-10-03 06:16 | HHI.HP ---
[facility] No Primary Care Physician Admission Diagnosis Frequent falls, Foot fracture. Diagnoses: (1) Frequent falls (2) Foot fracture, left (3) Hypertension Chief Complaint: frequent falls and left ankle pain Travel History International Travel<30 Days: No Contact w/Intl Traveler <30 Da: No Traveled to Known Affected Are: No History of Present Illness Ms. Holt is a 81-year-old female with a history of hypertension, hyperlipidemia, depression, chronic back pain, and GERD who presented to the ER on 10/02/2016 for evaluation following a fall the previous night with subsequent left ankle pain. The patient was brought into the emergency room by her son who reported she has been falling frequently and he expressed concern that the patient cannot care for herself anymore. Lumbar spine x-ray shows chronic changes and no acute fracture or acute- appearing malalignment. Left ankle and foot x-ray with minimal displaced avulsion fracture dorsally of the navicular bone. Osteopenia noted on ankle fracture. Head CT negative. Chest x-ray with no acute cardiopulmonary disease. Lungs hyperexpanded and pleural granulomatous disease noted not new. Urinalysis is negative except for a few strands of mucus; culture was not indicated. The patient is seen in her room. She is not a great historian and isn't able to recall much of her medical information. She can't exactly tell us how she came to be in the emergency room. She expresses a lot of worry and sadness and states that she is not able to think clearly and it is bothersome to her. She is not complaining of pain. She denies dizziness, shortness of breath, chest pain, syncope, abdominal pain, bloody stools, nausea, vomiting, hematuria, dysuria. She does report depression. . Review of Systems Except as stated in HPI: all other systems reviewed are Neg Past Family Social History Past Medical History Brought forth from review of electronic medical record due to patient's poor memory recall Hyperlipidemia Hypertension Depression Chronic back pain GERD Arthritis COPD . Past Surgical History Brought forth from review of electronic medical record due to patient's poor memory recall Morphine pain pump insertion Hysterectomy Lumbar fusion 2000 Right hip Eyelid surgery Bilateral tubal ligation . Reported Medications Reported Meds & Active Scripts Active Reported Omeprazole 40 Mg Cap 40 Mg PO DAILY Pravastatin 20 Mg Tab 20 Mg PO DAILY Paroxetine (Paroxetine HCl) 40 Mg Tab 40 Mg PO DAILY Furosemide 40 Mg Tab 40 Mg PO DAILY Diltiazem ER 24 HR 240 Mg Jamie 240 Mg PO DAILY Losartan (Losartan Potassium) 100 Mg Tab 100 Mg PO DAILY Alendronate (Alendronate Sodium) 70 Mg Tab 70 Mg PO WEEKLY Breo Ellipta Inh (Fluticasone/Vilanterol) 100-25 Mcg/Act Inh 1 Puff INH DAILY Use daily at the same time. Allergies: Coded Allergies: Adhesives (Verified Allergy, Severe, rash, 10/02/16) Bactrim (Verified Allergy, Severe, RED RASH, 10/02/16) Sulfa (Verified Allergy, Severe, RED RASH, 10/02/16) Active Ordered Medications Current Medications IV Flush 2 ml 2 ml UNSCH PRN IVF FLUSH AFTER USING IV ACCESS Last administered on 10/02/16 17:09; Start 10/02/16 at 16:15; Stop 10/02/16 at 20:58; Status DC Sodium Chloride (NS 500 ml Inj) 500 ml @ 500 mls/hr BOLUS ONCE IV Last administered on 10/02/16 16:09; Start 10/02/16 at 16:15; Stop 10/02/16 at 17:14 ; Status DC Diphtheria/ Tetanus/Acell Pertussis (Boostrix Inj) 0.5 ml ONCE ONCE IM ; Start 10/02/16 at 16:15; Stop 10/02/16 at 16:16; Status DC IV Flush (NS Flush) 2 ml UNSCH PRN FLUSH FLUSH AFTER USING IV ACCESS; Start at 21:00 IV Flush (NS Flush) 2 ml BID FLUSH Last administered on 10/02/16 21:00; Start 10/02/16 at 21:00 Ondansetron HCl (Zofran Inj) 4 mg Q6H PRN IVP NAUSEA OR VOMITING Last administered on 10/02/16 23:10; Start 10/02/16 at 21:00 Naloxone HCl (Narcan Inj) 0.4 mg UNSCH PRN IV SEE LABEL COMMENTS; Start at 21:00 Morphine Sulfate (Morphine Inj) 2 mg Q3H PRN IV PUSH pain >5 Last administered on 10/02/16t 23:10; Start 10/02/16 at 21:00 Diltiazem HCl (Cardizem Cd) 240 mg DAILY PO ; Start 10/03/16 at 09:00 Losartan Potassium (Cozaar) 100 mg DAILY PO ; Start 10/03/16 at 09:00 Pantoprazole Sodium (Protonix) 40 mg DAILY PO ; Start 10/03/16 at 09:00 Paroxetine HCl (Paxil) 40 mg DAILY PO ; Start 10/03/16 at 09:00 Pravastatin Sodium (Pravachol) 20 mg DAILY PO ; Start 10/03/16 at 09:00 Enalaprilat (Vasotec Inj) 2.5 mg Q6H PRN IV PUSH bp>160/90 Last administered on 10/03/16 03:52; Start 10/03/16 at 03:45 Family History Brought forth from review of electronic medical record due to patient's poor memory recall Father from myocardial infarction at age 77 . Social History Brought forth from review of electronic medical record due to patient's poor memory recall Tobacco: Quit smoking over 20 years ago; smoked -1 pack of cigarettes a day for 35 years Alcohol: No alcohol for over 20 years - the patient states during visit that she drinks "occasionally" Illicit Drugs: Denies . Physical Exam Vital Signs Vital Signs Date Time Temp Pulse Resp B/P Pulse Ox O2 Delivery O2 Flow Rate FiO2 10/03/16 04:00 98.8 83 18 171/72 98 10/03/16 02:20 185/89 10/03/16 00:20 71 10/03/16 00:17 97.8 74 16 182/74 96 10/03/16 00:03 82 20 168/70 100 10/03/16 00:02 20 10/02/16 23:11 84 20 171/79 100 10/02/16 18:30 97.8 77 17 177/84 99 Room Air 10/02/16 16:05 17 98 Room Air 10/02/16 15:28 17 99 Room Air 10/02/16 14:00 97.6 90 20 188/79 95 Room Air Physical Exam GENERAL: This is a well-nourished, well-developed patient, complaining of worry and depression. SKIN: No rashes, ecchymoses or lesions. Cool and dry. HEAD: Atraumatic. Normocephalic. EYES: No scleral icterus. No injection or drainage. ENT: Nose without bleeding, purulent drainage. NECK: Trachea midline. No JVD or lymphadenopathy. CARDIOVASCULAR: Regular rate and rhythm without murmurs, gallops, or rubs. RESPIRATORY: Clear to auscultation. Breath sounds equal bilaterally. No wheezes , rales, or rhonchi. GASTROINTESTINAL: Abdomen soft, non-tender, nondistended. No guarding. MUSCULOSKELETAL: Extremities without clubbing, cyanosis. No calf tenderness. Left ankle in a splint. NEUROLOGICAL: Awake and alert but disoriented and unable to recall a lot of detail about how she ended up in the hospital for her medical history in general. Motor and sensory grossly within normal limits. Normal speech. . Laboratory Laboratory Tests Test 10/02/16 16:30 White Blood Count 8.7 Red Blood Count 4.31 Hemoglobin 12.3 Hematocrit 37.4 Mean Corpuscular Volume 86.9 Mean Corpuscular Hemoglobin 28.6 Mean Corpuscular Hemoglobin 32.9 Concent Red Cell Distribution Width 15.9 Platelet Count 227 Mean Platelet Volume 7.9 Neutrophils (%) (Auto) 63.4 Lymphocytes (%) (Auto) 22.5 Monocytes (%) (Auto) 12.5 Eosinophils (%) (Auto) 1.1 Basophils (%) (Auto) 0.5 Neutrophils # (Auto) 5.5 Lymphocytes # (Auto) 2.0 Monocytes # (Auto) 1.1 Eosinophils # (Auto) 0.1 Basophils # (Auto) 0.0 CBC Comment DIFF FINAL Differential Comment Prothrombin Time 11.1 Prothromb Time International 1.0 Ratio Activated Partial 28.0 Thromboplast Time Urine Color LIGHT-YELLOW Urine Turbidity CLEAR Urine pH 6.5 Urine Specific [place] 1.007 Urine Protein NEG Urine Glucose (UA) NEG Urine Ketones NEG Urine Occult Blood NEG Urine Nitrite NEG Urine Bilirubin NEG Urine Urobilinogen LESS THAN 2.0 Urine Leukocyte Esterase NEG Urine RBC 2 Urine WBC LESS THAN 1 Urine Mucus FEW Microscopic Urinalysis Comment CATH-CULT NOT IND Sodium Level 140 Potassium Level 4.1 Chloride Level 105 Carbon Dioxide Level 24.8 Anion Gap 10 Blood Urea Nitrogen 14 Creatinine 0.79 Estimat Glomerular Filtration 70 Rate Random Glucose 93 Calcium Level 8.9 Total Bilirubin 0.7 Direct Bilirubin 0.1 Indirect Bilirubin 0.6 Aspartate Amino Transf 15 (AST/SGOT) Alanine Aminotransferase 16 (ALT/SGPT) Alkaline Phosphatase 75 Ammonia 24 Troponin I LESS THAN 0.02 Total Protein 7.1 Albumin 3.9 Thyroid Stimulating Hormone 0.698 3rd Gen Salicylates Level LESS THAN 1.7 Urine Opiates Screen POS Acetaminophen Level LESS THAN 2.0 Urine Barbiturates Screen NEG Urine Amphetamines Screen NEG Urine Benzodiazepines Screen NEG Urine Cocaine Screen NEG Urine Cannabinoids Screen NEG Result Diagram: 10/02/16 1630 10/02/16 1630 Imaging Last Impressions Head CT 10/02/16 1601 Signed Impressions: Service Date/Time: Sunday, October 02, 2016 18:19 - CONCLUSION: Negative noncontrast head CT. Frank Savage MD Chest X-Ray 10/02/16 1601 Signed Impressions: Service Date/Time: Sunday, October 02, 2016 18:23 - CONCLUSION: No evidence of acute cardiopulmonary disease. Hyperexpanded lungs and pleural granulomatous disease again noted. Frank Savage MD Lumbar Spine X-Ray 10/02/16 0000 Signed Impressions: Service Date/Time: Sunday, October 02, 2016 18:35 - CONCLUSION: Chronic and surgical changes. There is grade one anterolisthesis at L4/L5 which appears similar to the prior CT. No acute fracture or acute-appearing malalignment demonstrated. Please see above. Frank Savage MD Foot X-Ray 10/02/16 0000 Signed Impressions: Service Date/Time: Sunday, October 02, 2016 18:26 - CONCLUSION: Minimal displaced avulsion fracture dorsally of the navicular as above. Frank Savage MD Ankle X-Ray 10/02/16 0000 Signed Impressions: Service Date/Time: Sunday, October 02, 2016 18:24 - CONCLUSION: Minimally displaced avulsion fracture dorsally of the navicular, probably acute. Otherwise old/chronic findings and osteopenia. Please see above. Frank Savage MD . Assessment and Plan Problem List: (1) Frequent falls ICD Code: R29.6 Status: Acute (2) Foot fracture, left ICD Code: S92.902A Status: Acute (3) Hypertension ICD Code: I10 Status: Chronic Assessment and Plan Ms. Holt is a 81-year-old female with a history of hypertension, hyperlipidemia, depression, chronic back pain, and GERD who presented to the ER on 10/02/2016 for evaluation following a fall the previous night with subsequent left ankle pain. The patient was brought into the emergency room by her son who reported she has been falling frequently and he expressed concern that the patient cannot care for herself anymore. Left foot fracture - Morphine 2 mg IV every 3 hours when necessary for pain - Consult orthopedic surgeon Dr. Mccormick - Keep nothing by mouth for possible surgery Frequent falls Inability to provide self-care - Case management consult to assist with placement Hypertension - Blood pressure 188/79 on admission - Enalapril 2.5 mg IV every 6 hours as needed for blood pressure greater than 160/90 - Continue home medications - Monitor trends in blood pressure readings and adjust therapy as needed DVT prophylaxis - SCDs Written by Marisela Dominguez, acting as scribe for Dr. Clayton on 10/03/16 at 06:16. .The documentation accurately reflects the work performed [id number] by me on 10/03/16 at 0616 Discussed Condition With Patient, RN, and ER physician . Problem Qualifiers (1) Foot fracture, left: Qualified Code: S92.902A - Foot fracture, left, closed, initial encounter Marisela Dominguez Oct 03, 2016 06:16 Faraz Clayton MD Oct 03, 2016 08:43
--- NOTE | 2016-10-03 06:45 | PD.ORT.PN ---
Subjective Subjective Remarks s/p fall at home left foot pain. Objective Vitals Vital Signs Date Time Temp Pulse Resp B/P Pulse Ox O2 Delivery O2 Flow Rate FiO2 10/03/16 06:41 178/80 10/03/16 04:00 98.8 83 18 171/72 98 10/03/16 02:20 185/89 10/03/16 00:20 71 10/03/16 00:17 97.8 74 16 182/74 96 10/03/16 00:03 82 20 168/70 100 10/03/16 00:02 20 10/02/16 23:11 84 20 171/79 100 10/02/16 18:30 97.8 77 17 177/84 99 Room Air 10/02/16 16:05 17 98 Room Air 10/02/16 15:28 17 99 Room Air 10/02/16 14:00 97.6 90 20 188/79 95 Room Air I/O 10/02/16 10/02/16 10/02/16 10/03/16 10/03/16 10/03/16 07:00 15:00 23:00 07:00 15:00 23:00 Intake Total 0 ml Balance 0 ml Intake Oral 0 ml # Voids 1 # Bowel Movements 0 Result Diagram: 10/02/16 1630 10/02/16 1630 Other Results Laboratory Tests Test 10/02/16 16:30 Prothrombin Time 11.1 SEC (9.8-11.6) Prothromb Time International 1.0 RATIO Ratio Imaging Last [address] 10/02/16 1601 Signed Impressions: Service Date/Time: Sunday, October 02, 2016 18:19 - CONCLUSION: Negative noncontrast head CT. Frank Savage MD Chest X-Ray 10/02/16 1601 Signed Impressions: Service Date/Time: Sunday, October 02, 2016 18:23 - CONCLUSION: No evidence of acute cardiopulmonary disease. Hyperexpanded lungs and pleural granulomatous disease again noted. Frank Savage MD Objective Remarks LLE: tenderness over dorsum of foot. NVI Assessment & Plan Assessment and Plan 1) Left Avulsion Fx of Navicular - nonop -fracture boot -WBAT with boot on -ortho cleared for discharge -f/u with Mannie or FABI in 2 weeks Gilberto De La Vega Oct 03, 2016 06:45
[2016-10-03 07:24] LABS: AUTOMATED NEUTROPHIL # 3.2 TH/MM3 (1.8-7.7); BASOPHIL % 0.8 % (0.0-2.0); EOSINOPHIL # 0.1 TH/MM3 (0-0.4); EOSINOPHIL % 2.1 % (0.0-4.0); HEMATOCRIT 35.6 % (35.0-46.0); HEMO FLAGS DIFF FINAL; LYMPH % 25.6 % (9.0-44.0); LYMPHOCYTE # 1.4 TH/MM3 (1.0-4.8); MEAN CELL VOLUME 86.5 FL (80.0-100.0); MEAN CORPUSCULAR HEMOGLOBIN 28.6 PG (27.0-34.0); MONO % 13.8 % (0.0-8.0); NEUT % 57.7 % (16.0-70.0); PLATELET COUNT 204 TH/MM3 (150-450); RED BLOOD COUNT 4.12 MIL/MM3 (4.00-5.30); RED CELL DISTRIBUTION WIDTH 15.9 % (11.6-17.2); WHITE BLOOD COUNT 5.6 TH/MM3 (4.0-11.0)
[2016-10-03 07:51] LABS: BICARBONATE 26.4 MEQ/L (21.0-32.0); POTASSIUM 3.4 MEQ/L (3.5-5.1)
[2016-10-03] MEDS: DILTIAZEM-CD 240 MG CAP ER PO SCH (08:34)
[2016-10-03] MEDS: PANTOPRAZOLE SOD 40 MG DELAYED RELEASE TAB PO SCH (08:34)
[2016-10-03] MEDS: PRAVASTATIN SOD 20 MG TAB PO SCH (08:34)
[2016-10-03] MEDS: LOSARTAN 50 MG TAB PO SCH (08:35)
[2016-10-03] MEDS: PARoxetine HCL 20 MG TAB PO SCH (08:35)
[2016-10-03] MEDS: SODIUM CHLORIDE 0.9% FLUSH 5 ML FLUSH FLUSH SCH ×2 (08:40→20:48)
--- NOTE | 2016-10-03 11:06 | MB ---
cc: JOSE MIGUEL FREEDMAN,HANG SNYDER DATE OF CONSULTATION: 10/03/2016 REASON FOR CONSULTATION Left foot navicular fracture. CONSULTING PHYSICIAN Dr. Gilmore HISTORY OF PRESENT ILLNESS Mallory is a 81-year-old female who has multiple medical problems including hypertension, high cholesterol, depression, chronic back pain and reflux. She describes a fall at home approximately two days ago. She has apparently had multiple falls recently. She lives at home alone but is having difficulty taking care of herself. She presented to the emergency room where x-rays of the left foot revealed a small avulsion fracture of the navicular. She is awake in the emergency department. She is unable to clearly explain how she fell. The pain in her foot is worse with weightbearing and is improved with rest. PAST MEDICAL HISTORY ILLNESSES 1. Hypertension. 2. Depression. 3. Back pain. 4. Reflux. 5. Arthritis. 6. COPD. 7. High cholesterol. SURGERIES 1. Pain pump placement. 2. Hysterectomy. 3. Lumbar fusion. 4. Bilateral tubal ligation. MEDICATIONS 1. Omeprazole. 2. Pravastatin. 3. Paroxetine. 4. Lasix. 5. Diltiazem. 6. Losartan. 7. Alendronate. ALLERGIES 1. ADHESIVES. 2. BACTRIM. 3. SULFA. FAMILY HISTORY Positive for myocardial infarction in her father. SOCIAL HISTORY The patient quit smoking 20 years ago. She denies alcohol or drug use. REVIEW OF SYSTEMS The patient denies headache, visual changes, neck pain, chest pain, shortness of breath, abdominal pain, nausea, vomiting or recent weight loss. She complains of mild left foot pain with weightbearing. PHYSICAL EXAMINATION GENERAL: The patient is a well-developed, well-nourished 81-year-old female in no acute distress. She is awake and alert. VITAL SIGNS: Temperature 98.8, pulse 83, respirations 18, blood pressure 171/72. O2 sat is 98% on room air. HEAD: The patient is normocephalic. Pupils are equal. NECK: Soft, nontender. Trachea is midline. ABDOMEN: Soft, nontender, nondistended. EXTREMITIES: Examination of bilateral upper extremities reveals no pain with shoulder, elbow or wrist motion. She has intact sensation in all fingers. She has good capillary refill in all fingers. Radial pulses are palpable. Sensation is intact in radial, ulnar and median nerve distributions bilaterally. Examination of right leg reveals no pain with hip, knee or ankle motion. Skin is intact. Dorsalis pedis pulse is palpable. Sensation is intact. Examination of left leg reveals no pain with hip, knee or ankle motion. She has mild tenderness over the dorsum of her midfoot. She has mild swelling present. Skin is intact. Sensation is intact. Dorsalis pedis pulse is palpable. X-RAYS X-rays of the left foot were reviewed. The patient has a small avulsion fracture off the dorsum of the navicular. IMPRESSION 1. Hypertension. 2. COPD. 3. Left foot navicular avulsion fracture. PLAN The treatment options were discussed with the patient. At this point I would recommend nonoperative treatment. The patient will be fitted for a fracture boot. She may weight bear as tolerated with fracture boot on. She will likely need to wear the boot for 4-6 weeks. She may follow-up in the office in 2-4 weeks for repeat x-rays of the left foot. All questions were answered. A mid-level provider in my office, nurse practitioner or PA, may see this patient on a follow-up basis and continue to implement the objective of this plan including: Starting or adjusting medications, injections of muscle, tendon, bursa or joints, cast application, orthotic or brace application, physical therapy, further radiographic studies including x-ray, MRI, CT, ultrasounds or bone scan, vascular studies, neurologic studies, or other specialist consultations, and proceeding with surgical management as appropriate. MD HEATHER Olvera/ABDIRASHID /7:05 AM /10:53 AM
[2016-10-03] MEDS ORDERED: ACETAMINOPHEN 325 MG TAB PO PRN (11:15)
[2016-10-03] MEDS: ACETAMINOPHEN/HYDROcodone 325 MG/5 MG TAB PO PRN ×3 (12:31→20:49)
[2016-10-04] VITALS: BP 121/72; PULSE 78; RESP 18; TEMP 97.8; O2SAT 98
[2016-10-04] MEDS: ACETAMINOPHEN/HYDROcodone 325 MG/5 MG TAB PO PRN ×4 (02:22→20:18)
[2016-10-04 04:45] VITALS: BP 173/70; PULSE 74; RESP 18; TEMP 98.8; O2SAT 94
--- NOTE | 2016-10-04 07:12 | EKG ---
Date Performed: 10/02/2016 Time Performed: 18:56:01 PTAGE: 81 years EKG: Sinus rhythm WITH FIRST DEGREE AV BLOCK INTRAVENTRICULAR CONDUCTION DELAY Prolongation of QT interval ABNORMAL EC G PREVIOUS TRACING : 07/23/2016 11.47 DOCTOR: Miguelito Rhoades Interpretating Date/Time 10/04/2016 07:11:38
[2016-10-04 07:40] VITALS: BP 190/74; PULSE 80; RESP 18; TEMP 98.2; O2SAT 97
[2016-10-04] MEDS: PANTOPRAZOLE SOD 40 MG DELAYED RELEASE TAB PO SCH (08:15)
[2016-10-04] MEDS: PRAVASTATIN SOD 20 MG TAB PO SCH (08:15)
[2016-10-04] MEDS: LOSARTAN 50 MG TAB PO SCH (08:15)
[2016-10-04] MEDS: PARoxetine HCL 20 MG TAB PO SCH (08:15)
[2016-10-04] MEDS: DILTIAZEM-CD 240 MG CAP ER PO SCH (08:15)
[2016-10-04] MEDS: SODIUM CHLORIDE 0.9% FLUSH 5 ML FLUSH FLUSH SCH ×2 (08:16→20:16)
[2016-10-04 09:51] VITALS: BP 155/70
--- NOTE | 2016-10-04 13:23 | HHI.DCPOC ---
Discharge Care Plan Diagnosis: (1) Frequent falls (2) Foot fracture, left (3) Hypertension (4) Hyperlipidemia (5) GERD (gastroesophageal reflux disease) Goals to Promote Your Health * To prevent worsening of your condition and complications * To maintain your health at the optimal level Directions to Meet Your Goals Take your medications as prescribed Follow your dietary instruction Follow activity as directed Keep your appointments as scheduled Take your immunizations and boosters as scheduled If your symptoms worsen call your PCP, if no PCP go to Urgent Care Center or Emergency Room Smoking is Dangerous to Your Health. Avoid second hand smoke Call the 24-hour hour crisis hotline for domestic abuse at Kelly Tom PA-C Oct 04, 2016 13:23
--- NOTE | 2016-10-04 13:53 | HHI.PR ---
Subjective Remarks Follow up for fall, left foot fracture. The patient reports some continued pain at the left foot, relieved by pain medications. She has no other medical complaints. Denies any lightheadedness, dizziness, chest pain, shortness of breath, or abdominal pain. She does not recall when she last had a BM, says it may have been a couple days. She is tolerating oral intake. Objective Vitals Vital Signs Date Time Temp Pulse Resp B/P Pulse Ox O2 Delivery O2 Flow Rate FiO2 10/04/16 09:51 155/70 10/04/16 07:40 98.2 80 18 190/74 97 10/04/16 04:45 98.8 74 18 173/70 94 10/04/16 00:00 97.8 78 18 121/72 98 10/03/16 19:00 98.4 68 18 110/58 98 10/03/16 18:13 16 10/03/16 15:36 97.9 84 16 142/67 96 I/O 10/03/16 10/03/16 10/03/16 10/04/16 10/04/16 10/04/16 07:00 15:00 23:00 07:00 15:00 23:00 Intake Total 0 ml 480 ml Balance 0 ml 480 ml Intake Oral 0 ml 480 ml # Voids 1 # Bowel Movements 0 Result Diagram: 10/03/16 0615 10/03/16 0615 Imaging Last Impressions Head CT 10/02/16 1601 Signed Impressions: Service Date/Time: Sunday, October 02, 2016 18:19 - CONCLUSION: Negative noncontrast head CT. Frank Savage MD Chest X-Ray 10/02/16 1601 Signed Impressions: Service Date/Time: Sunday, October 02, 2016 18:23 - CONCLUSION: No evidence of acute cardiopulmonary disease. Hyperexpanded lungs and pleural granulomatous disease again noted. Frank Savage MD Lumbar Spine X-Ray 10/02/16 0000 Signed Impressions: Service Date/Time: Sunday, October 02, 2016 18:35 - CONCLUSION: Chronic and surgical changes. There is grade one anterolisthesis at L4/L5 which appears similar to the prior CT. No acute fracture or acute-appearing malalignment demonstrated. Please see above. Frank Savage MD Foot X-Ray 10/02/16 0000 Signed Impressions: Service Date/Time: Sunday, October 02, 2016 18:26 - CONCLUSION: Minimal displaced avulsion fracture dorsally of the navicular as above. Frank Savage MD Ankle X-Ray 10/02/16 0000 Signed Impressions: Service Date/Time: Sunday, October 02, 2016 18:24 - CONCLUSION: Minimally displaced avulsion fracture dorsally of the navicular, probably acute. Otherwise old/chronic findings and osteopenia. Please see above. Frank Savage MD Objective Remarks GENERAL: Well-nourished, well-developed pleasant elderly female patient in NAD. SKIN: Warm and dry. No rash. HEENT: Normocephalic. Atraumatic.Pupils equal and round. No scleral icterus. No injection or drainage. Mucous membranes pink and moist. NECK: Supple. Trachea midline. CARDIOVASCULAR: Regular rate and rhythm. S1, S2 noted. No murmur appreciated. RESPIRATORY: No accessory muscle use. Clear to auscultation. Breath sounds equal bilaterally. GASTROINTESTINAL: Abdomen soft, non-tender, nondistended. Normoactive bowel sounds x4. MUSCULOSKELETAL: Left lower extremity in fracture boot, distal toes sensation intact with +cap refill. Extremities without clubbing, cyanosis, or edema. NEUROLOGICAL: Awake and alert. No obvious cranial nerve deficits. Motor grossly within normal limits. Normal speech. PSYCHIATRIC: Appropriate mood and affect; insight and judgment normal. Medications and IVs Current Medications Medications (Trade) Dose Ordered Sig/Nicole Route Start Time Stop Time Status Last Admin (NS Flush) 2 ml UNSCH PRN FLUSH 10/02/16 21:00 (NS Flush) 2 ml BID FLUSH 10/02/16 21:00 10/04/16 08:16 (Zofran Inj) 4 mg Q6H PRN IVP 10/02/16 21:00 10/02/16 23:10 (Narcan Inj) 0.4 mg UNSCH PRN IV 10/02/16 21:00 (Morphine Inj) 2 mg Q3H PRN IV PUSH 10/02/16 21:00 10/02/16 23:10 (Cardizem Cd) 240 mg DAILY PO 10/03/16 09:00 10/04/16 08:15 (Cozaar) 100 mg DAILY PO 10/03/16 09:00 10/04/16 08:15 (Protonix) 40 mg DAILY PO 10/03/16 09:00 10/04/16 08:15 (Paxil) 40 mg DAILY PO 10/03/16 09:00 10/04/16 08:15 (Pravachol) 20 mg DAILY PO 10/03/16 09:00 10/04/16 08:15 (Vasotec Inj) 2.5 mg Q6H PRN IV PUSH 10/03/16 03:45 10/03/16 03:52 (Tylenol) 650 mg Q6H PRN PO 10/03/16 11:15 ([place] 5-325 Mg) 1 tab Q4H PRN PO 10/03/16 11:15 10/04/16 08:15 A/P Problem List: (1) Frequent falls ICD Code: R29.6 Status: Acute (2) Foot fracture, left ICD Code: S92.902A Status: Acute (3) Hypertension ICD Code: I10 Status: Chronic Assessment and Plan 81-year-old female with a history of HTN, HLD, depression, chronic back pain, and GERD who presented to the ER on 10/02/2016 for evaluation following a fall the previous night with subsequent left ankle pain. The patient was brought into the emergency room by her son who reported she has been falling frequently and he expressed concern that the patient cannot care for herself anymore. Left foot Avulsion Fracture of Navicular bone - Consult orthopedic surgeon, seen by Dr. Hart - Nonoperative - Fracture boot, WBAT - Cleared for d/c by ortho, f/up in 2 weeks - Pain control with [place] prn and IV morphine prn pain Frequent falls Inability to provide self-care - Case management consult to assist with placement Hypertension - Blood pressure 188/79 on admission - Given IV Vasotec prn BP > 160/90 - Continue home medications including Cozaar and Cardizem - Monitor BP and adjust therapy as needed DVT prophylaxis - SCDs Discussed with Dr. Blas Discharge Planning Discharge to SNF when arranged by case management. Discharge patient to SNF Condition on discharge: Improved Heart Healthy Diet as tolerated Ad Jennifer activity Rx written: Natanael Follow-up with primary care physician in 2-3 days and orthopedic surgeon Dr. Hart in 2 weeks Attending Statement The exam, history, and the medical decision-making described in the above note were completed with the assistance of the mid-level provider. I reviewed and agree with the findings presented. I attest that I had a [id number] encounter with the patient on the same day, and personally performed and documented my assessment and findings in the medical record. Problem Qualifiers (1) Foot fracture, left: Qualified Code: S92.902A - Foot fracture, left, closed, initial encounter Kelly Tom PA-C Oct 04, 2016 13:53 Sohail Blas MD Oct 04, 2016 22:57
[2016-10-04 15:17] VITALS: BP 182/79; PULSE 85; RESP 17; O2SAT 95
[2016-10-04 19:12] VITALS: BP 137/62; PULSE 86; RESP 20; TEMP 98.3; O2SAT 95
[2016-10-04] MEDS: MORPHINE SULFATE 4 MG/ML INJ IV PUSH PRN (23:10)
[2016-10-05 00:05] VITALS: BP 126/80; PULSE 81; RESP 20; TEMP 98; O2SAT 96
[2016-10-05 04:21] VITALS: BP 170/79; PULSE 78; RESP 20; TEMP 98; O2SAT 97
[2016-10-05] MEDS: SODIUM CHLORIDE 0.9% FLUSH 5 ML FLUSH FLUSH SCH (07:48)
[2016-10-05] MEDS: DILTIAZEM-CD 240 MG CAP ER PO SCH (07:49)
[2016-10-05] MEDS: LOSARTAN 50 MG TAB PO SCH (07:49)
[2016-10-05] MEDS: PANTOPRAZOLE SOD 40 MG DELAYED RELEASE TAB PO SCH (07:49)
[2016-10-05] MEDS: PRAVASTATIN SOD 20 MG TAB PO SCH (07:49)
[2016-10-05] MEDS: PARoxetine HCL 20 MG TAB PO SCH (07:49)
[2016-10-05 08:19] VITALS: BP 189/76; PULSE 87; RESP 18; TEMP 96.7; O2SAT 98
[2016-10-05] MEDS ORDERED: HYDR-3516 PO (11:09)
[2016-10-05] MEDS: MORPHINE SULFATE 4 MG/ML INJ IV PUSH PRN (12:07)
[2016-10-05 12:22] VITALS: BP 148/72; PULSE 80; RESP 18; O2SAT 95
--- NOTE | 2016-10-05 12:29 | HHI.DS ---
Discharge Summary Admission Date Oct 02, 2016 at 8:56 pm Discharge Date: Oct 05, 2016 Admitting Diagnosis Frequent falls, Foot fracture. (1) Frequent falls ICD Code: R29.6 Diagnosis: Principal (2) Foot fracture, left ICD Code: S92.902A Diagnosis: Principal (3) Hypertension ICD Code: I10 Diagnosis: Secondary Procedures None. Brief History - From Admission Ms. Holt is a 81-year-old female with a history of hypertension, hyperlipidemia, depression, chronic back pain, and GERD who presented to the ER on 10/02/2016 for evaluation following a fall the previous night with subsequent left ankle pain. The patient was brought into the emergency room by her son who reported she has been falling frequently and he expressed concern that the patient cannot care for herself anymore. Lumbar spine x-ray shows chronic changes and no acute fracture or acute- appearing malalignment. Left ankle and foot x-ray with minimal displaced avulsion fracture dorsally of the navicular bone. Osteopenia noted on ankle fracture. Head CT negative. Chest x-ray with no acute cardiopulmonary disease. Lungs hyperexpanded and pleural granulomatous disease noted not new. Urinalysis is negative except for a few strands of mucus; culture was not indicated. The patient is seen in her room. She is not a great historian and isn't able to recall much of her medical information. She can't exactly tell us how she came to be in the emergency room. She expresses a lot of worry and sadness and states that she is not able to think clearly and it is bothersome to her. She is not complaining of pain. She denies dizziness, shortness of breath, chest pain, syncope, abdominal pain, bloody stools, nausea, vomiting, hematuria, dysuria. She does report depression. . CBC/BMP: 10/03/16 0615 10/03/16 0615 Significant Findings Laboratory Tests Test 10/02/16 10/03/16 16:30 06:15 Monocytes (%) (Auto) 12.5 % 13.8 % (0.0-8.0) (0.0-8.0) Monocytes # (Auto) 1.1 TH/MM3 (0-0.9) Urine Mucus FEW /lpf (OCC) Estimat Glomerular Filtration 70 ML/MIN (>89) 82 ML/MIN (>89) Rate Troponin I LESS THAN 0.02 NG/ML (0.02-0.05) Salicylates Level LESS THAN 1.7 MG/DL (2.8-20.0) Urine Opiates Screen POS (NEG) Acetaminophen Level LESS THAN 2.0 MCG/ML (10.0-30.0) Potassium Level 3.4 MEQ/L (3.5-5.1) Imaging Last Impressions Head CT 10/02/16 1601 Signed Impressions: Service Date/Time: Sunday, October 02, 2016 18:19 - CONCLUSION: Negative noncontrast head CT. Frank Savage MD Chest X-Ray 10/02/16 1601 Signed Impressions: Service Date/Time: Sunday, October 02, 2016 18:23 - CONCLUSION: No evidence of acute cardiopulmonary disease. Hyperexpanded lungs and pleural granulomatous disease again noted. Frank Savage MD Lumbar Spine X-Ray 10/02/16 0000 Signed Impressions: Service Date/Time: Sunday, October 02, 2016 18:35 - CONCLUSION: Chronic and surgical changes. There is grade one anterolisthesis at L4/L5 which appears similar to the prior CT. No acute fracture or acute-appearing malalignment demonstrated. Please see above. Frank Savage MD Foot X-Ray 10/02/16 0000 Signed Impressions: Service Date/Time: Sunday, October 02, 2016 18:26 - CONCLUSION: Minimal displaced avulsion fracture dorsally of the navicular as above. Frank Savage MD Ankle X-Ray 10/02/16 0000 Signed Impressions: Service Date/Time: Sunday, October 02, 2016 18:24 - CONCLUSION: Minimally displaced avulsion fracture dorsally of the navicular, probably acute. Otherwise old/chronic findings and osteopenia. Please see above. Frank Savage MD PE at Discharge GENERAL: Well-nourished, well-developed pleasant elderly female patient in [facility]. SKIN: Warm and dry. No rash. HEENT: Normocephalic. Atraumatic.Pupils equal and round. No scleral icterus. No injection or drainage. Mucous membranes pink and moist. NECK: Supple. Trachea midline. CARDIOVASCULAR: Regular rate and rhythm. S1, S2 noted. No murmur appreciated. RESPIRATORY: No accessory muscle use. Clear to auscultation. Breath sounds equal bilaterally. GASTROINTESTINAL: Abdomen soft, non-tender, nondistended. Normoactive bowel sounds x4. MUSCULOSKELETAL: Left lower extremity in fracture boot, distal toes sensation intact with +cap refill. Extremities without clubbing, cyanosis, or edema. NEUROLOGICAL: Awake and alert. No obvious cranial nerve deficits. Motor grossly within normal limits. Normal speech. PSYCHIATRIC: Appropriate mood and affect; insight and judgment normal. Hospital Course 81-year-old female with a history of HTN, HLD, depression, chronic back pain, and GERD who presented to the ER on 10/02/2016 for evaluation following a fall the previous night with subsequent left ankle pain. The patient was brought into the emergency room by her son who reported she has been falling frequently and he expressed concern that the patient cannot care for herself anymore. Left foot Avulsion Fracture of Navicular bone - Consult orthopedic surgeon, seen by Dr. Chand - Nonoperative - Fracture boot, WBAT - Cleared for d/c by ortho, f/up in 2 weeks - Pain control with Vanzant prn and IV morphine prn pain - doing well, needs rehab Frequent falls Inability to provide self-care - Case management consult to assist with placement at SNF Hypertension - Blood pressure 188/79 on admission - Given IV Vasotec prn BP > 160/90 - Continue home medications including Cozaar and Cardizem - Monitor BP and adjust therapy as needed - Improved Constipation -no BM in 3 days, will give marcia-colace 2tabs x1 and start on Marcia-Colace 1 tab po bid -monitor for BM DVT prophylaxis - SCDs Written by Kelly Tom, acting as scribe for Dr. Blas on 10/05/16 at 12: 29. The documentation accurately reflects the work performed [id number] by me, Dr. Blas on 10/05/16 at 12:29. Pt Condition on Discharge: Stable Discharge Disposition: Discharge to SNF Discharge Time: > 30 minutes Discharge Instructions DIET: Follow Instructions for: Heart Healthy Diet Activities you can perform: Regular-No Restrictions, Weight Bearing as Leonardo Other Activity Instructions: Continue fracture boot. WBAT. Follow up Referrals: Orthopedics - 1 Week with Brooks Chand MD PCP Follow-up - 2-3 Days New Medications: Hydrocodone-Acetaminophen (Hydrocodone-Acetaminophen) 5-325 mg Tab 1 TAB PO Q4H PRN PAIN SCALE 3 TO 10 #15 TAB Continued Medications: Alendronate (Alendronate) 70 Mg Tab 70 MG PO WEEKLY Osteporosis Treatment #4 Ref 0 TAB Diltiazem ER 24 HR (Diltiazem ER 24 HR) 240 Mg Jamie 240 MG PO DAILY #30 Ref 0 TAB Fluticasone-Vilanterol Inh (Breo Ellipta Inh) 100-25 Mcg/Act Inh 1 PUFF INH DAILY Use daily at the same time. #1 Ref 0 INHALER Furosemide (Furosemide) 40 Mg Tab 40 MG PO DAILY #30 Ref 0 TAB Losartan (Losartan) 100 Mg Tab 100 MG PO DAILY Blood Pressure Management #30 Ref 0 TAB Omeprazole (Omeprazole) 40 Mg Cap 40 MG PO DAILY #30 Ref 0 CAP Paroxetine (Paroxetine) 40 Mg Tab 40 MG PO DAILY #30 Ref 0 TAB Pravastatin (Pravastatin) 20 Mg Tab 20 MG PO DAILY Cholesterol Management #30 Ref 0 TAB Kelly Tom PA-C Oct 05, 2016 12:29 Sohail Blas MD Oct 06, 2016 08:37
[2016-10-05] MEDS ORDERED: DOCUSATE SODIUM 50 MG/SENNA 8.6 MG TAB PO ONE (13:00)
[2016-10-05] MEDS: ACETAMINOPHEN/HYDROcodone 325 MG/5 MG TAB PO PRN (13:59)
[2016-10-05 15:04] VITALS: RESP 18
[2016-10-05] MEDS ORDERED: MAGNESIUM HYDROXIDE SUSP 30 ML CUP PO ONE (15:30)
[2016-10-05] MEDS ORDERED: SENN1TAB PO (15:30)
[2016-10-05] MEDS ORDERED: DOCUSATE SODIUM 50 MG/SENNA 8.6 MG TAB PO SCH (21:00)
== END 2016-10-05 16:25 ==
LOC: NEPA 13:59 → NEDA 20:56 → NEPHCDU 23:58
PROVIDERS: ADMIT Internal Medicine; ATTEND Internal Medicine
DX: S92.252A Displaced fracture of navicular [scaphoid] of left foot, initial encounter for closed fracture (principal); M79.672 Pain in left foot; M54.5 Low back pain; W01.0XXA Fall on same level from slipping, tripping and stumbling without subsequent striking against object, initial encounter; Z91.81 History of falling; R41.82 Altered mental status, unspecified; F32.9 Major depressive disorder, single episode, unspecified; I49.9 Cardiac arrhythmia, unspecified; I10 Essential (primary) hypertension; E78.00 Pure hypercholesterolemia, unspecified; K21.9 Gastro-esophageal reflux disease without esophagitis; K44.9 Diaphragmatic hernia without obstruction or gangrene; G89.29 Other chronic pain; Z79.899 Other long term (current) drug therapy; R29.6 Repeated falls; M79.89 Other specified soft tissue disorders; E78.5 Hyperlipidemia, unspecified; M85.80 Other specified disorders of bone density and structure, unspecified site; D71 Functional disorders of polymorphonuclear neutrophils; J44.9 Chronic obstructive pulmonary disease, unspecified; K59.00 Constipation, unspecified
CPT/HCPCS: 70450; 71020; 72110; 73610; 73630; 80048; 80076; 80307; 81001; 82140; 84443; 84484; 85025; 85610; 85730; 93005; 96360; 97110; 97116; 97163; 99285; G0378; G8987; G8988; J2270; J2405; J7040; P9612; 80329; G0480

== ENCOUNTER 2018-02-11 16:04 | Inpatient (IN) ==
[2018-02-14 12:41] VITALS: O2SAT 96
[2018-02-14 19:47] VITALS: BP 142/65; PULSE 62; RESP 14; TEMP 97.9
== END 2018-02-14 19:25 ==
LOC: NEDA 16:04 → NEPC 16:04 → NEPFCDU 19:32 → N06 02-12 18:27
PROVIDERS: ADMIT Family Medicine; ATTEND Family Medicine